=== PATIENT | female | born 1980 | race Caucasian/White ===

== ENCOUNTER 2016-06-11 12:41 | Inpatient (IN) | payer OTHER ==
[~2016-06-11] VITALS: Ht 160 cm; Wt 73.0 kg
[~2016-06-11 12:41] MED LIST: HYDROXYZINE PAM50 MG PO; KEFLEX500 MG PO; METHADONE10 MG PO; PROMETHAZINE HC25 M1 PO; ROPINIROLE HCL1 MG PO; THERAGRAN1 TABLET PO; TORADOL10 MG PO; TRAZODONE HCL50 MG PO
[2016-06-11 15:34] LABS: HEMATOCRIT 40.5 % (36.0-46.0); MCH 28.3 PG (29.0-34.0); MCHC 34.1 G/DL (30.0-36.0); MEAN PLAT.VOLUME 9.1 uM^3 (9.5-12.4); PLATELET COUNT 270 K/uL (156-360); RBC DIS.WIDTH-CV 12.2 % (11.8-14.6); RED BLOOD COUNT 4.88 M/uL (3.80-5.20); WHITE BLOOD COUNT 9.7 K/uL (4.1-10.2)
[2016-06-11 15:41] LABS: CHLORIDE 105 mEq/L (99-109); SODIUM 139 mEq/L (136-147)
[2016-06-11 15:43] LABS: GLUCOSE 77 mg/dL (70-99)
[2016-06-11 15:44] LABS: ANION GAP 10 MEQ/L (2-14)
[2016-06-11 15:46] LABS: SERUM ETHYL ALCOHOL < 10 mg/dL
[2016-06-11 15:47] LABS: GFR ESTIMATE (CALCULATED) > 59 mL/min/
[2016-06-11 15:48] LABS: UREA NITROGEN (BUN) 11 mg/dL (9-23)
[2016-06-11 15:57] LABS: QUANTITATIVE HCG < 4.0 MIU/ML
[2016-06-11 16:01] LABS: AMPHETAMINE NEGATIVE (500 ng/mL); BARBITURATES NEGATIVE (200 ng/mL); BENZODIAZEPINES PRESUMPTIVE POSITIVE (150 ng/mL); COCAINE NEGATIVE (150 ng/mL); INTERNAL CONTROLS VALID? YES; METHADONE PRESUMPTIVE POSITIVE (200 ng/mL); METHAMPHETAMINE NEGATIVE (500 ng/mL); OPIATES (MORPHINE) NEGATIVE (100 ng/mL); OXYCODONE NEGATIVE (100 ng/mL); PHENCYCLIDINE NEGATIVE (25 ng/mL); PROPOXYPHENE NEGATIVE (300 ng/mL); THC CANNABINOIDS PRESUMPTIVE POSITIVE (50 ng/mL); TRICYCLIC ANTIDEPRESSANTS NEGATIVE (300 ng/mL)
[2016-06-11 16:02] LABS: ADD MEDTOX COMMENT Y
[2016-06-11 16:51] LABS: BENZODIAZEPINES, URINE SCREEN POSITIVE (200 ng/mL)
[2016-06-12] MEDS ORDERED: METHADONE10 MG PO (08:17)
[2016-06-12 17:17] VITALS: BP 112/63
[2016-06-12] MEDS ORDERED: QUETIAPINE FUMA25 MG PO (17:30)
[2016-06-12] MEDS ORDERED: XANAX0.25 MG PO (17:32)
[2016-06-13 09:11] VITALS: BP 111/57
[2016-06-13 15:26] VITALS: BP 144/63
[2016-06-13 19:08] VITALS: BP 81/44
[2016-06-14 07:56] VITALS: BP 93/59
[2016-06-14 09:10] VITALS: BP 106/66
[2016-06-14 10:36] VITALS: BP 99/60
[2016-06-14 13:02] VITALS: BP 108/60
[2016-06-14 15:28] VITALS: BP 87/52
[2016-06-14 18:21] VITALS: BP 91/58
[2016-06-15 08:01] VITALS: BP 97/49
[2016-06-15 15:54] VITALS: BP 88/50
[2016-06-16 07:33] VITALS: BP 92/50
[2016-06-16 15:20] VITALS: BP 91/54
[2016-06-17 07:57] VITALS: BP 85/47
[2016-06-17 13:56] VITALS: BP 101/61
[2016-06-17 15:37] VITALS: BP 92/52
[2016-06-18 07:43] VITALS: BP 81/45
[2016-06-18] MEDS ORDERED: NEURONTIN300 MG PO ×2 (09:13→09:16)
[2016-06-18] MEDS ORDERED: TRAZODONE HCL50 MG PO (09:16)
[2016-06-18] MEDS ORDERED: HYDROXYZINE PAM25 MG PO (09:16)
== END 2016-06-18 11:25 | disposition home or self-care (01) | DRG 885 ==
LOC: EME 12:41 → 1WEST 06-12 15:32 → EDOF 06-12 15:32 → 1WEST 06-12 17:10
PROC: HZ2ZZZZ Detoxification Services for Substance Abuse Treatment (ICD-10-PCS; principal; 2016-06-12)
DX: F32.1 Major depressive disorder, single episode, moderate (principal); R45.851 Suicidal ideations; F11.20 Opioid dependence, uncomplicated; F05 Delirium due to known physiological condition; F19.930 Other psychoactive substance use, unspecified with withdrawal, uncomplicated; F10.120 Alcohol abuse with intoxication, uncomplicated; B18.2 Chronic viral hepatitis C; F12.90 Cannabis use, unspecified, uncomplicated; F17.210 Nicotine dependence, cigarettes, uncomplicated; R00.0 Tachycardia, unspecified; Y90.0 Blood alcohol level of less than 20 mg/100 ml; F60.3 Borderline personality disorder; Z56.0 Unemployment, unspecified; Z87.442 Personal history of urinary calculi; Z81.1 Family history of alcohol abuse and dependence
CPT/HCPCS: 80048; 84702; 84999; 85027; 90837; 97150 GO; 97165 GO; 99281; 99285; G0480; Q0177